=== PATIENT | female | born 1970 | race African-American/Black ===

== ENCOUNTER 2024-05-22 01:55 | Inpatient (IN) | payer OTHER ==
[2024-05-22 02:13] LABS: Actual Bicarbonate (HCO3a) 22.9 mEq/L (22-28); Analyzer IN Cardio ER; Base Excess (BEa) 0.1 mEq/L (-2.0 to +3.0); CO2 Tension 31.6 mmHg (35.0-45.0); Calcium, Ionized (arterial) 1.14 mmol/L (1.12-1.30); Carboxyhemoglobin (COHb) 9.4 gm% (0.0-3.0); Hematocrit-ABG 38 % (36.0-47.0); Hemoglobin (Hb) 12.9 g/dL (12.0-16.0); O2 Tension (PaO2), arterial 242.6 mmHg (80.0-100.0); Potassium - ABG Lab 3.78 mmol/L (3.70-5.30); pH, Arterial 7.478 (7.35-7.45)
[2024-05-22 02:23] LABS: Puncture Site RR
[2024-05-22 02:59] LABS: ALT (SGPT) 20 U/L (8-55); AST (SGOT) 23 U/L (5-34); Albumin 3.8 g/dL (3.5-5.0); Alkaline Phosphatase 71 U/L (40-110); Anion Gap 16 mmol/L (10-20); BUN (Urea Nitrogen) 16 mg/dL (9.8-20.1); Bilirubin, Total 0.2 mg/dL (0.2-1.2); Calc. Creatinine Clearance 0 mL/min (70-130); Calcium 9.3 mg/dL (7.8-10.44); Carbon Dioxide 17 mmol/L (22-29); Chloride 108 mmol/L (98-107); Estimated GFR 73; Globulin 3.8 g/dL (2.4-3.5); Glucose 132 mg/dL (70-105); Potassium 4.1 mmol/L (3.5-5.1); Protein, Total 7.6 g/dL (6.0-8.3); Sodium 137 mmol/L (136-145)
[2024-05-22 03:01] LABS: Troponin I 0.074 ng/mL (< 0.028)
[2024-05-22] MEDS ORDERED: Ondansetron PF 4 MG/2 ML Vial IVP PRN (05:14)
[2024-05-22] MEDS ORDERED: Acetaminophen 650 MG Suppository PR PRN (05:14)
[2024-05-22] MEDS ORDERED: Acetaminophen 325 MG TAB PO PRN (05:14)
[2024-05-22] MEDS ORDERED: Ondansetron ODT 4 MG TAB PO PRN (05:14)
[2024-05-22 05:20] LABS: #Basophils 0.03 10x3/uL (0.0-0.2); #Eosinphils Less than 0.03 10x3/uL (0.0-0.7); %Basophils 0.5 % (0.0-1.0); %Eosinophils 0.2 % (0.0-10.0); %Lymphocytes 17.7 % (21.0-51.0); %Monocytes 6.2 % (0.0-10.0); %Neutrophils 75.2 % (42.0-75.0); Hematocrit 35.2 % (36.0-47.0); Hemoglobin 11.6 g/dL (12.0-16.0); Mean Corpuscular Hemoglobin 29.4 pg (27.0-31.0); Mean Corpuscular Volume 89.3 fL (78.0-98.0); Mean Platelet Volume 10.6 fL (7.4-10.4); Platelet Count 260 10x3/uL (130-400); RBC Distribution Width 14.5 % (11.5-14.5); Red Blood Cell (RBC) Count 3.94 mill/uL (4.20-5.40)
[2024-05-22 05:34] LABS: Lactic Acid 1.6 mmol/L (0.5-2.2)
[2024-05-22 05:46] LABS: Troponin I 0.081 ng/mL (< 0.028)
[2024-05-22 07:36] VITALS: BMI 36.2
[2024-05-22 11:29] LABS: Pregnancy Test - Urine (BHCG) Negative (Negative); Pregu Control Background? CLEAR/WHITE (CLR/WHITE); Pregu Control Bar Appear? YES (CONTROL BAR); Specific Gravity 1.016 (1.002-1.036)
[2024-05-22 13:41] LABS: Analyzer IN Cardio ER; Base Excess (BEa) -0.5 mEq/L (-2.0 to +3.0); CO2 Tension 33.9 mmHg (35.0-45.0); Calcium, Ionized (arterial) 1.17 mmol/L (1.12-1.30); Carboxyhemoglobin (COHb) 0.3 gm% (0.0-3.0); Hematocrit-ABG 36 % (36.0-47.0); Hemoglobin (Hb) 12.3 g/dL (12.0-16.0); O2 Tension (PaO2), arterial 339.9 mmHg (80.0-100.0); Potassium - ABG Lab 4.07 mmol/L (3.70-5.30); pH, Arterial 7.449 (7.35-7.45)
[2024-05-22 13:44] LABS: ALV-art Gradient 330.725 mmHg (0-20); Puncture Site RRA
[2024-05-22 15:12] VITALS: BP 140/89; TEMP 98.6
== END 2024-05-22 15:12 | disposition home or self-care (01) | DRG 917 ==
LOC: ERS 01:55 → ERHOLD 04:25
PROVIDERS: ADMIT Student in an Organized Health Care Education/Training Program; ATTEND Internal Medicine
PROC: 4A033R1 Measurement of Arterial Saturation, Peripheral, Percutaneous Approach (ICD-10-PCS; principal; 2024-05-22)
DX: T58.8X1A Toxic effect of carbon monoxide from other source, accidental (unintentional), initial encounter (principal); G92.8 Other toxic encephalopathy; I24.89 Other forms of acute ischemic heart disease; I10 Essential (primary) hypertension; Z98.51 Tubal ligation status; Y92.092 Bedroom in other non-institutional residence as the place of occurrence of the external cause
CPT/HCPCS: 36415; 36600; 81025; 82805; 83605; 83735; 84443; 93005